=== PATIENT | male | born 1940 | race Caucasian/White ===

== ENCOUNTER 2018-03-15 14:30 | Outpatient (CLI) | payer MEDICARE, MEDICAID, SELFPAY | END 2018-03-15 14:50 | PROVIDERS: PCP Family Medicine; Visit Provider Family Medicine | DX: N39.0 Urinary tract infection, site not specified (principal); R30.0 Dysuria | CPT/HCPCS: 87086 ==

== ENCOUNTER 2018-07-25 16:37 | Outpatient (REF) | payer MEDICARE, MEDICAID, SELFPAY ==
[2018-07-25 17:15] LABS: Abs Immature Grans 0.03 k/cumm (0.0-0.09); Absolute Basophil Count 0.01 k/cumm (0.0-0.2); Absolute Eosinophil Count 0.17 k/cumm (0.0-0.7); Absolute Lymphocyte Count 1.49 k/cumm (1.2-3.4); Absolute Monocyte Count 0.79 k/cumm (0.11-0.7); Absolute Neutrophil Count 3.87 k/cumm (1.2-6.7); Basophils % 0.2; Eosinophils % 2.7; HGB 13.7 g/dL (13.5-17.5); Immature Grans % 0.5; Lymphocytes % 23.4; Mean Corp. HGB Concentration 34.3 g/dL (32.0-36.0); Mean Corpuscular Hemoglobin 36.3 pg (27.0-33.0); Mean Corpuscular Volume 106.1 fL (80-95); Mean Platelet Volume 11.6 fL (8.0-11.0); Monocytes % 12.4; Neutrophils % 60.8; Platelet Count 360 x1000/uL (130-400); RBC 3.77 m/cumm (4.50-6.00); RBC Distribution Width 12.5 % (11.8-14.1); White Blood Cell Count 6.36 k/cumm (4.4-10.8)
[2018-07-25 17:35] LABS: ALT 25 U/L (12-78); AST 25 U/L (15-37); Albumin 3.1 g/dL (3.4-5.0); Alkaline Phosphatase 83 U/L (46-116); Anion Gap 9.6 mmol/L (3-11); BUN 20 mg/dL (7-18); Bilirubin, Total 0.3 mg/dL (0.2-1.0); CO2 28.4 mmol/L (21.0-32.0); CREATININE 1.16 mg/dL (0.70-1.30); Calcium 8.6 mg/dL (8.5-10.1); Chloride 103 mmol/L (98-107); Glucose 159 mg/dL (70-100); Potassium 4.5 mmol/L (3.5-5.1); Sodium 141 mmol/L (136-145); Total Protein 7.3 g/dL (6.4-8.2)
[2018-07-25 19:07] LABS: Macrocytosis 1+
[2018-07-25 20:26] LABS: Hemoglobin A1C 6.4 % (4.5-6.2)
== END 2018-07-25 16:57 ==
LOC: LBN 16:37
PROVIDERS: PCP Family Medicine; Visit Provider Family Medicine
DX: I10 Essential (primary) hypertension (principal); E78.5 Hyperlipidemia, unspecified; E11.9 Type 2 diabetes mellitus without complications
CPT/HCPCS: 80053; 83036; 85025

== ENCOUNTER 2018-10-21 14:07 | Outpatient (REF) | payer MEDICARE, MEDICAID, SELFPAY ==
[2018-10-21 14:38] LABS: Anion Gap 10.5 mmol/L (3-11); BUN 21 mg/dL (7-18); CO2 25.5 mmol/L (21.0-32.0); CREATININE 1.16 mg/dL (0.70-1.30); Calcium 8.4 mg/dL (8.5-10.1); Chloride 104 mmol/L (98-107); Glucose 147 mg/dL (70-100); Potassium 3.5 mmol/L (3.5-5.1); Sodium 140 mmol/L (136-145); Uric Acid 10.3 mg/dL (3.5-7.2)
== END 2018-10-21 14:27 ==
LOC: LBN 14:07
PROVIDERS: PCP Family Medicine; Visit Provider Nurse Practitioner Adult Health
DX: M10.9 Gout, unspecified (principal); R60.9 Edema, unspecified
CPT/HCPCS: 80048; 84550

== ENCOUNTER 2018-11-22 11:04 | Outpatient (REF) | payer MEDICARE, MEDICAID, SELFPAY ==
[2018-11-22 13:05] LABS: Anion Gap 16.6 mmol/L (3-11); BUN 21 mg/dL (7-18); CO2 20.4 mmol/L (21.0-32.0); CREATININE 1.18 mg/dL (0.70-1.30); Calcium 9.4 mg/dL (8.5-10.1); Chloride 101 mmol/L (98-107); Estimated GFR 59.55 (mL/min/1.73m2); Glucose 217 mg/dL (70-100); Sodium 138 mmol/L (136-145)
[2018-11-22 13:40] LABS: Hemoglobin A1C 6.2 % (4.5-6.2)
== END 2018-11-22 11:24 ==
LOC: LBO 11:04
PROVIDERS: PCP Family Medicine; Visit Provider Nurse Practitioner Adult Health
DX: E11.9 Type 2 diabetes mellitus without complications (principal)
CPT/HCPCS: 36415; 80048; 83036

== ENCOUNTER 2018-12-06 10:45 | Outpatient (CLI) | payer MEDICARE, MEDICAID, SELFPAY ==
[2018-12-06 13:41] LABS: Uric Acid 7.5 mg/dL (3.5-7.2)
== END 2018-12-06 11:05 ==
PROVIDERS: PCP Family Medicine; Visit Provider Nurse Practitioner Adult Health
DX: M10.00 Idiopathic gout, unspecified site (principal)
CPT/HCPCS: 84550

== ENCOUNTER 2019-04-25 10:08 | Outpatient (CLI) | payer MEDICARE, MEDICAID, SELFPAY | END 2019-04-25 10:28 | PROVIDERS: PCP Family Medicine; Visit Provider Nurse Practitioner Adult Health | DX: E11.9 Type 2 diabetes mellitus without complications (principal) | CPT/HCPCS: 36415; 83036 ==

== ENCOUNTER 2019-06-20 10:26 | Outpatient (CLI) | payer MEDICARE, SELFPAY ==
[2019-06-20 11:37] LABS: Anion Gap 18.1 mmol/L (3-11); BUN 23 mg/dL (7-18); CO2 18.9 mmol/L (21.0-32.0); CREATININE 1.06 mg/dL (0.70-1.30); Chloride 107 mmol/L (98-107); Glucose 189 mg/dL (74-106); Potassium 3.9 mmol/L (3.5-5.1); Sodium 144 mmol/L (136-145)
== END 2019-06-20 10:46 ==
PROVIDERS: PCP Family Medicine; Visit Provider Nurse Practitioner Adult Health
DX: R60.9 Edema, unspecified (principal); E11.9 Type 2 diabetes mellitus without complications; I10 Essential (primary) hypertension; E78.5 Hyperlipidemia, unspecified
CPT/HCPCS: 36415; 80048

== ENCOUNTER 2020-03-06 22:40 | Emergency (ER) | payer MEDICARE, MEDICAID, SELFPAY ==
--- NOTE | 2020-03-06 22:30 | ED.GENADUL_ITS ---
Discharge Plan Disposition Patient Disposition: SNF ([facility] Condition: Poor Discharge Details Chief Complaint: Orthopedic Clinical Impression: Closed hip fracture Primary Care Provider: Solomon Lowe ED Provider: Lakshmi Palmer Home Meds and New Rx's Prescriptions: Continued lisinopril 5 MG tablet 5 mg PO DAILY Qty: 30 RF: 0 memantine [Namenda] 10 MG tablet 10 mg PO DAILY RF: 0 multivitamin Tablet 1 tab PO DAILY RF: 0 metformin 500 mg tablet 500 mg PO DAILY RF: 0 acetaminophen 325 mg Tablet 650 mg PO Q4H PRN (Reason: Pain) RF: 0 allopurinol 100 mg tablet 100 mg PO DAILY RF: 0 magnesium hydroxide [Milk of Magnesia] 400 mg/5 mL Suspension 30 ml PO DAILY PRN (Reason: Constipation) RF: 0 bisacodyl [Dulcolax (bisacodyl)] 10 mg Suppository 10 mg WA DAILY PRNRF: 0 mirtazapine 7.5 mg tablet 7.5 mg PO DAILY RF: 0 Discharge Instructions Instructions: Hip Fracture (ED) Additional Instructions: Bob was found to have a hip fracture while here. He is comfortable which is the primary goal of care. Please allow him to be in a position of comfort. Abduction pillow may help. Tylenol seems to have helped with his discomfort. Please discuss case with family further, unable to reach Tray a second time. Follow up with physician to discuss further pain management as needed. Return with any new/worsening symptoms. Referrals: Solomon Lowe [Primary Care Provider] - Medical Decision Making Spoke with PUNCHING MACHINE OPERATOR who was caring for hte patient. She describes that this was a par tially witnessed fall. She states that aid saw him hit his head. He was endorsing left thigh pain as well. When they initially saw the patient, they advised that he was guarding his left thigh. Nursing staff reports that the patient is a DNR/DNI as well as a do not transfer. However, secondary to the patient's discomfort, she did speak with his son as well as the physician who recommended transfer here for evaluation of his left femur. On exam, patient is clearly confused. His verbal abilities seem to be quite minimal and answers of all questions seem to be very inconsistent disjointed pat ient answers at all. Does have a small ecchymotic area on the left side of his head. No hemotympanum, pupils are responsive. Patient is in a cervical collar, applied by EMS. No pain with palpation along spine, no evidence of pain on palpation of the chest, abdomen, pelvis. I do not appreciate any shortening of the lower extremity or rotational deformities. No pain noted with palpation of the lower extremities. He has capillary refills are intact and equal bilaterally. Patient is collared. Given his confused state, I feel the only safe way to be able to clear this would be for imaging. However, the patient also has advanced directives not wanting any intervention medically. He also appears very distressed and inferior with movement. I did speak with the patient's nurse who states that this fear with movement is baseline for him. Spoke with the patients son Tray at [phone]. He and I discussed CT imaging. At this time, after time shared decision making, we have decided to hold off on CT imaging of the head or neck. Will forward with the imaging of the left femur. Exquisite discomfort additionally. We also discussed that some of his pain may be improved as nursing staff did appropriately give him Tylenol prior to transfer here. XR reviewed by myself, patient has femoral neck fracture. Reexamined the atient. He has no shortening, is not endorsing pain. No pain with palpation. Seems to be quite comfortable. This is in alignment with what his COLST form indicates for advanced directives. I attempted to reach Tray again but no answer. Spoke with nursing staff at [facility] again, Christina. Relayed information. Patient continues to be comfortable. Plan to send back to [facility] per his wishes to be [employer]. Advised close f/u with phsyciian to ensure continued pain management. HPI General Date/Time Provider Initiated Documentation: 03/06/20 23:50 . Related Data Home Medications Medication Instructions Recorded Confirmed lisinopril 5 mg PO DAILY #30 tab 11/16/16 03/06/20 memantine [Namenda] 10 mg PO DAILY 11/16/16 03/06/20 acetaminophen 650 mg PO Q4H PRN 03/06/20 03/06/20 allopurinol 100 mg PO DAILY 03/06/20 03/06/20 bisacodyl [Dulcolax (bisacodyl)] 10 mg WA DAILY PRN 03/06/20 03/06/20 magnesium hydroxide [Milk of 30 ml PO DAILY PRN 03/06/20 03/06/20 Magnesia] metformin 500 mg PO DAILY 03/06/20 03/06/20 mirtazapine 7.5 mg PO DAILY 03/06/20 03/06/20 multivitamin 1 tab PO DAILY 03/06/20 03/06/20 Previous Rx's Medication Instructions Recorded lisinopril 5 mg PO DAILY #30 tab 11/16/16 Allergies Allergy/AdvReac Type Severity Reaction Status Date / Time No Known Allergies Allergy Unverified 03/06/20 22:50 [facility] Social History Smoking/Tobacco Use Status: Unknown Substance use type: unknown Additional Social history: Resides at [facility]. Exam Const General: cooperative, comfortable, no acute distress, anxious and ill appearing ( ) chronically Nutritional Appearance: cachectic and malnourished Orientation: alert, awake and confused [facility] Head: normal to inspection, no palpable skull fracture and normocephalic Head images: 1. area of ecchymosis, no palpable skull fracture. EOM intact Ears: hearing grossly normal bilaterally, external ears normal and TM's normal bilaterally General nose exam: external nose normal Eyes General: appearance normal, both eyes and all related structures Visual García: normal visual garcía by confrontation Alignment and Position: alignment normal Periorbital: periorbital findings normal Eyelids: eyelids normal Conjunctivae: conjunctivae normal Pupils: PERRL EOM: EOM intact bilaterally Neck Neck: normal visual inspection, limited ROM (patient collared), no lymphadenopathy, trachea midline and supple Chest Chest: normal inspection of the chest, normal palpation of entire chest wall, no crepitus and no localized rib tenderness Resp Effort & Inspection: normal respiratory effort, able to speak in complete sentences and no respiratory distress Auscultation: clear to auscultation bilaterally, no rales, no rhonchi and no wheezes Cardio Rate: regular rate Rhythm: regular rhythm Heart Sounds: S1 normal and S2 normal GI Inspection: normal to inspection, no abdominal wall ecchymosis, no edema and non-distended Palpation: soft, no hepatosplenomegaly, not firm, no guarding, no pulsatile masses, not rigid and nontender Auscultation: normal bowel sounds Back/Spine/Pelvis Back: no CVA tenderness Cervical Spine: collar present Thoracic/Lumbar Spine: thoracic and lumbar spine normal to inspection and No thoracic spinal tenderness Pelvis: no pain with anterior-posterior compression and no pain with lateral compression Back/spine/pelvis image: 1. area of erythema, no breakdown of the skin Skin General skin exam: ecchymosis (left side of forehead) and erythema (buttock) Neuro General: patient alert, patient awake and not oriented x3 (per report of nursing staff, patient at baseline) Extrem General: normal to inspection, full ROM, capillary refill normal, no pedal edema and no calf tenderness Psych Appearance: grossly normal and well kempt
[2020-03-06 22:43] VITALS: BP 146/96; PULSE 88; RESP 16; TEMP 36.6; O2SAT 95
--- NOTE | 2020-03-06 23:38 | DI.RAD_ITS ---
EXAM: XR FEMUR LT CLINICAL HISTORY: fall. TECHNIQUE: 2D digital imaging was performed. COMPARISON: None. FINDINGS: There is a subcapital fracture of the proximal left femur. There is mild impaction. Lateral view is somewhat limited due to or overlying structures. There is acetabular spurring. No additional fract ures are seen distally in the femur. There are degenerative changes at the knee. IMPRESSION: Subcapital fracture of the proximal femur. DATA REPOSITORY: RADIATION DOSE DELIVERED:
--- NOTE | 2020-03-06 23:55 | DI.VRAD_ITS ---
PROCEDURE INFORMATION: Exam: XR Left Femur Exam date and time: 03/06/2020 11:17 PM Age: 79 years old Clinical indication: Injury or trauma; Fall; Initial encounter; Blunt trauma; Hip; Left; Injury date: 03/06/20 TECHNIQUE: Imaging protocol: XR Left femur. Views: 2 views. COMPARISON: No relevant prior studies available. FINDINGS: Bones/joints: The the pubic symphysis is intact. The left femoral head is within the acetabulum. Cortical discontinuity at the femoral neck at the junction of the neck and femoral head in keeping with an acute subcapital proximal femur fracture with mild impaction. The knee joint is intact. Soft tissues: Vascular calcifications. IMPRESSION: Acute subcapital fracture of the proximal left femur with mild impaction. Dictated and Authenticated by: Chani Gagnon MD. Ordering:AMY Martins MD
== END 2020-03-07 00:05 | disposition skilled nursing facility (03) ==
PROVIDERS: Emergency Provider Physician Assistant; PCP Family Medicine
DX: S72.002A Fracture of unspecified part of neck of left femur, initial encounter for closed fracture (principal); W19.XXXA Unspecified fall, initial encounter
CPT/HCPCS: 73552; 99283; 99281

== ENCOUNTER 2020-03-12 14:05 | Outpatient (REF) | payer MEDICARE, SELFPAY ==
[2020-03-13 17:48] LABS: COVID-19 RT-PCR Result Not Detected ((See Note))
== END 2020-03-12 14:25 ==
LOC: LBN 14:05
PROVIDERS: PCP Family Medicine; Visit Provider Nurse Practitioner Adult Health
DX: Z11.59 Encounter for screening for other viral diseases (principal)
CPT/HCPCS: U0003